=== PATIENT | female | born 1950 | race Caucasian/White ===

== ENCOUNTER → 2016-06-19 | Outpatient (CLI) | payer MEDICARE ==
[~2016-06-19] MED LIST: LISI10TA6 PO; MET25T PO
== END | disposition home or self-care (01) ==
LOC: LAB 11:12
PROVIDERS: ATTEND Internal Medicine
DX: E87.6 Hypokalemia (principal)
CPT/HCPCS: 36415; 84132

== ENCOUNTER → 2016-06-26 | Outpatient (CLI) | payer MEDICARE ==
[2016-06-26 09:46] LABS: BUN/Creatinine Ratio 24.1; Calcium 8.5 mg/dL (8.5-10.1); Potassium 3.1 mmol/L (3.5-5.1)
== END | disposition home or self-care (01) ==
LOC: LAB 08:36
PROVIDERS: ATTEND Internal Medicine
DX: R16.0 Hepatomegaly, not elsewhere classified (principal)
CPT/HCPCS: 36415; 80048

== ENCOUNTER 2016-07-25 10:58 | Emergency (ER) | payer MEDICARE ==
[~2016-07-25] VITALS: Ht 170.2 cm; Wt 77.1 kg
[2016-07-25] MEDS ORDERED: LORazepam 2MG/ML-1ML VIAL ONE (11:11)
[2016-07-25] MEDS ORDERED: SODIUM CHLORIDE 0.9% 1,000 ML IVB ONE (11:23)
[2016-07-25 11:57] LABS: Basophils # (auto) 0.1 uL; Basophils % (auto) 0.5 % (0.0-2.0); DEFINITIVE VIEW TRANSMISSION; Eosinophils # (auto) 0.2 uL; Eosinophils % (auto) 1.4 % (0.0-7.0); Hematocrit 38.7 % (36.0-46.0); Lymphocytes # (auto) 2.8 uL; Lymphocytes % (auto) 20.1 % (10.0-50.0); Mean Corpuscular Hemoglobin 29.6 pg (28.0-32.0); Mean Corpuscular Volume 95.4 fL (80.0-100.0); Mean Platelet Volume 7.6 fL (7.4-10.4); Monocytes # (auto) 0.9 uL; Monocytes % (auto) 6.4 % (0.0-12.0); Neutrophils % (auto) 71.6 % (37.0-80.0); Platelet Count (auto) 579 10^3/uL (140-450); Red Cell Distribution Width 19.6 % (11.6-16.0)
[2016-07-25 12:13] LABS: Anisocytosis Slight; Burr Cells FEW; Ovalocytes FEW; Platelet Estimate Increased
[2016-07-25 12:16] LABS: Partial Thromboplastin Time 28.6 sec (22.64-33.71)
[2016-07-25 12:20] LABS: Albumin 2.4 g/dL (3.4-5.0); Alkaline Phosphatase 125 U/L (45-117); Anion Gap 9 (5-15); Aspartate Aminotransferase 39 U/L (15-37); BUN/Creatinine Ratio 17.4; Bilirubin, Total 0.2 mg/dL (0.2-1.0); Blood Urea Nitrogen 12 mg/dL (7-18); Calcium 7.5 mg/dL (8.5-10.1); Carbon Dioxide 25 mmol/L (21-32); Chloride 109 mmol/L (98-107); GFR African American 109 mL/min; GFR Non-African American 90 mL/min; Glucose 124 mg/dL (74-106); Sodium 143 mmol/L (136-145); Total Protein 5.3 g/dL (6.4-8.2)
[2016-07-25 12:21] LABS: Lactic Acid 2.9 mmol/L (0.4-2.0)
[2016-07-25 12:28] LABS: INR 1.23 (0.9-1.15); Prothrombin Time 12.7 sec (9.37-12.3)
[2016-07-25 12:46] LABS: REFLEX LACTIC ACID YES OR NO YES
[2016-07-25] MEDS ORDERED: SUCCINYLCHOLINE CHLORIDE 20 MG/ML 10ML VIAL IV ONE (13:12)
[2016-07-25] MEDS ORDERED: ETOMIDATE (2MG/ML) 20ML VIAL IV ONE ×2 (13:12→14:00)
[2016-07-25] MEDS ORDERED: MIDAZOLAM DRIP 100 mg/100mL NS 100 ML IV ONE (13:31)
[2016-07-25] MEDS ORDERED: MIDAZOLAM DRIP 100 mg/100mL NS 100 ML IV SCH (14:00)
[2016-07-25 14:10] VITALS: BP 127/74
[2016-07-25] MEDS ORDERED: POTASSIUM CHL 20MEQ/100ML 100 ML IV SCH (14:30)
== END 2016-07-25 14:40 | disposition short-term general hospital, planned readmission (82) ==
LOC: EDUNIT# 10:58 → EDBD 10:58 → ER 11:10
DX: G93.9 Disorder of brain, unspecified (principal); I10 Essential (primary) hypertension; J44.9 Chronic obstructive pulmonary disease, unspecified; F17.210 Nicotine dependence, cigarettes, uncomplicated; D64.9 Anemia, unspecified; E87.6 Hypokalemia; D47.3 Essential (hemorrhagic) thrombocythemia
CPT/HCPCS: 31500; 36415; 36600; 51702; 70450; 71010; 80053; 80320; 82805; 83605; 83735; 84484; 85025; 85610; 85730; 87040; 87070; 87205; 93005; 94002; 96361; 96365; 99291; J0330; J2060; J7030; 94761